=== PATIENT | female | born 1985 | race Caucasian/White ===

== ENCOUNTER 2017-02-03 03:07 | Inpatient (IN) | payer OTHER ==
[2017-02-03] MEDS ORDERED: Water For Irrigation,Sterile 1,000 ML Container IRR PRN (04:26)
[2017-02-03] MEDS ORDERED: Butorphanol 1 MG/ML SDV IVPUSH PRN (04:26)
[2017-02-03] MEDS ORDERED: Carboprost Tromethamine 250 MCG/1 ML Amp IM PRN (04:26)
[2017-02-03] MEDS ORDERED: Lidocaine 1% 50 ML MDV INJECT PRN (04:26)
[2017-02-03] MEDS ORDERED: Sodium Chloride 0.9% 10 ML Syringe FLUSH PRN (04:26)
[2017-02-03] MEDS ORDERED: Methylergonovine 0.2 MG/1 ML Amp IM PRN (04:26)
[2017-02-03] MEDS ORDERED: Nalbuphine 10 MG/1 ML Vial IVPUSH PRN (04:26)
[2017-02-03] MEDS ORDERED: Misoprostol 200 MCG Tab PO PRN (04:26)
[2017-02-03] MEDS ORDERED: Sodium Chloride 0.9% 2.5 ML Syringe FLUSH PRN (04:26)
[2017-02-03] MEDS ORDERED: Oxytocin/Lactated Ringers 30 UNIT/500 ML BAG IV SCH (04:30)
[2017-02-03] MEDS: Lactated Ringers 1,000 ML IV SCH ×2 (05:06→06:47)
[2017-02-03] MEDS ORDERED: Ropivacaine 0.2% 2 MG/ML 20 ML SDV ONE (06:13)
[2017-02-03] MEDS ORDERED: Ropivacaine HCl/PF 100 ML ONE (06:13)
[2017-02-03] MEDS ORDERED: fentaNYL 100 MCG/2 ML SDV ONE (06:14)
--- NOTE | 2017-02-03 07:30 | PCM.PREANE ---
Preanesthetic Assessment - Anesthesia/Transfusion/Family Hx Family History of Anesthesia Reaction: No (Denies) - Review of Systems General: No Symptoms Pulmonary: No Symptoms Cardiovascular: No Symptoms Gastrointestinal: No symptoms Neurological: No Symptoms Other: Reports: None (Denies any personal or family hx of bleeding or clotting problems) - Physical Assessment Height: 1.7 m Weight: 113.398 kg ASA Class: 2 Mental Status: Alert & Oriented x3 - Lab Values: Laboratory Last Values WBC 10.41 K/uL (4.0-11.0) 02/03/17 05:00 RBC 4.73 M/uL (4.30-5.90) 02/03/17 05:00 Hgb 12.4 g/dL (12.0-16.0) 02/03/17 05:00 Hct 37.9 % (36.0-46.0) 02/03/17 05:00 MCV 80.1 fL (80.0-98.0) 02/03/17 05:00 MCH 26.2 pg (27.0-32.0) L 02/03/17 05:00 MCHC 32.7 g/dL (31.0-37.0) 02/03/17 05:00 RDW Std Deviation 41.1 fl (28.0-62.0) 02/03/17 05:00 RDW Coeff of Liz 14 % (11.0-15.0) 02/03/17 05:00 Plt Count 240 K/uL (150-400) 02/03/17 05:00 MPV 9.90 fL (7.40-12.00) 02/03/17 05:00 Nucleated RBC % 0.0 /100WBC 02/03/17 05:00 Nucleated RBCs # 0 K/uL 02/03/17 05:00 Blood Type A NEGATIVE 02/03/17 05:00 Antibody Screen NEGATIVE 02/03/17 05:00 - Allergies Allergies/Adverse Reactions: Allergies Allergy/AdvReac Type Severity Reaction Status Date / Time Penicillins Allergy Hives Verified 04/05/14 21:10 - Acknowledgements Anesthesia Type Planned: Epidural Pt an Appropriate Candidate for the Planned Anesthesia: Yes Alternatives and Risks of Anesthesia Discussed w Pt/Guardian: Yes Pt/Guardian Understands and Agrees with Anesthesia Plan: Yes PreAnesthesia Questionnaire - Past Health History Medical/Surgical History: Denies Medical/Surgical History - Past Surgical History HEENT Surgical History: Reports: Tonsillectomy Other HEENT Surgeries/Procedures: Sparks teeth GI Surgical History: Reports: Other (see below) ([place]ernia not specified) - SUBSTANCE USE Smoking Status *Q: Former Smoker Days Per Week of Alcohol Use: 0 - HOME MEDS Home Medications: Home Meds Vit No.130/Iron/FA [ Vitamins] 1 tab PO DAILY 04/05/14 [History ] - CURRENT (IN HOUSE) MEDS Current Meds: Current Medications Butorphanol Tartrate (Stadol) 1 mg IVPUSH Q1H PRN PRN Reason: Pain Carboprost Tromethamine (Hemabate Ds) 250 mcg IM ASDIRECTED PRN PRN Reason: Post Hemorrhage Lactated Ringer's (Ringers, Lactated) 1,000 mls @ 150 mls/hr IV ASDIRECTED PABLO Last Admin: 02/03/17 06:47 Dose: 150 mls/hr Lidocaine HCl (Xylocaine 1%) 50 ml INJECT .ONCE PRN PRN Reason: Laceration repair Methylergonovine Maleate (Methergine) 0.2 mg IM ASDIRECTED PRN PRN Reason: Post Hemorrhage Misoprostol (Cytotec) 200 mcg PO .ONCE PRN PRN Reason: Post Hemorrhage Sodium Chloride (Saline Flush) 10 ml FLUSH ASDIRECTED PRN PRN Reason: Keep Vein Open Sodium Chloride (Saline Flush) 2.5 ml FLUSH ASDIRECTED PRN PRN Reason: Keep Vein Open Sterile Water (Sterile Water For Irrigation) 1,000 ml IRR ASDIRECTED PRN PRN Reason: delivery Discontinued Medications Fentanyl (Sublimaze) Confirm Administered Dose 200 mcg .ROUTE .STK-MED ONE Stop: 02/03/17 06:15 Oxytocin/Lactated Ringer's (Pitocin In Lr 30 Units/500 Ml) 30 unit in 500 mls @ 999 mls/hr IV TITRATE PABLO; 999 MUNITS/MIN PRN Reason: Protocol Stop: 02/03/17 05:01 Ropivacaine (Naropin 0.2%) Confirm Administered Dose 100 mls @ as directed .ROUTE .STK-MED ONE Stop: 02/03/17 06:14 Nalbuphine HCl (Nubain) 10 mg IVPUSH Q1H PRN PRN Reason: Pain (severe 7-10) Stop: 02/03/17 06:27 Ropivacaine (Naropin 0.2%) Confirm Administered Dose 20 ml .ROUTE .STK-MED ONE Stop: 02/03/17 06:14 Preanesthetic Assessment - PHYSICAL ASSESSMENT Height: 1.7 m Weight: 113.398 kg - LAB Values: Laboratory Last Values WBC 10.41 K/uL (4.0-11.0) 02/03/17 05:00 RBC 4.73 M/uL (4.30-5.90) 02/03/17 05:00 Hgb 12.4 g/dL (12.0-16.0) 02/03/17 05:00 Hct 37.9 % (36.0-46.0) 02/03/17 05:00 MCV 80.1 fL (80.0-98.0) 02/03/17 05:00 MCH 26.2 pg (27.0-32.0) L 02/03/17 05:00 MCHC 32.7 g/dL (31.0-37.0) 02/03/17 05:00 RDW Std Deviation 41.1 fl (28.0-62.0) 02/03/17 05:00 RDW Coeff of Liz 14 % (11.0-15.0) 02/03/17 05:00 Plt Count 240 K/uL (150-400) 02/03/17 05:00 MPV 9.90 fL (7.40-12.00) 02/03/17 05:00 Nucleated RBC % 0.0 /100WBC 02/03/17 05:00 Nucleated RBCs # 0 K/uL 02/03/17 05:00 Blood Type A NEGATIVE 02/03/17 05:00 Antibody Screen NEGATIVE 02/03/17 05:00 - ALLERGIES Allergies/Adverse Reactions: Allergies Allergy/AdvReac Type Severity Reaction Status Date / Time Penicillins Allergy Hives Verified 04/05/14 21:10
[2017-02-03] MEDS ORDERED: Oxytocin/Lactated Ringers 30 UNIT/500 ML BAG ONE (07:56)
[2017-02-03] MEDS ORDERED: oxyCODONE 5 MG Tab PO PRN (08:27)
[2017-02-03] MEDS ORDERED: Benzocaine/Menthol 20%-0.5% Spray 78 GM Cannister TOP PRN (08:27)
[2017-02-03] MEDS ORDERED: Lanolin 100% Cream 7 GM Tube TOP PRN (08:27)
[2017-02-03] MEDS ORDERED: Docusate Sodium 100 MG Cap PO PRN (08:27)
[2017-02-03] MEDS ORDERED: Ibuprofen 400 MG Tab PO PRN (08:27)
[2017-02-03] MEDS ORDERED: Witch Hazel Medicated Pads 40/Jar TOP PRN (08:27)
[2017-02-03] MEDS ORDERED: Acetaminophen 500 MG Tab PO PRN ×2 (08:27)
[2017-02-03] MEDS ORDERED: Ibuprofen 800 MG Tab PO PRN (08:27)
[2017-02-03] MEDS ORDERED: Bisacodyl 10 MG Supp RECTAL PRN (08:27)
--- NOTE | 2017-02-03 09:37 | PCM48HPAN ---
Post Anesthesia Note - EVALUATION WITHIN 48HRS OF ANESTHETIC Vital Signs in Normal Range: Yes Patient Participated in Evaluation: Yes Respiratory Function Stable: Yes Airway Patent: Yes Cardiovascular Function Stable: Yes Hydration Status Stable: Yes Pain Control Satisfactory: Yes Nausea and Vomiting Control Satisfactory: Yes Mental Status Recovered: Yes - COMMENTS/OBSERVATIONS Free Text/Narrative:: Sitting up in bed with baby. Denies any complaints at this time.
--- NOTE | 2017-02-03 14:01 | OR ---
SURGEON: Glenny Roberto MD DATE OF PROCEDURE: 02/03/2017 PREOPERATIVE DIAGNOSES: 1. Term at 40 weeks and 3 days. 2. Spontaneous labor. POSTOPERATIVE DIAGNOSES: 1. Term at 40 weeks and 3 days. 2. Spontaneous labor. 3. Delivered. PROCEDURE: Spontaneous vaginal delivery. ANESTHESIA: Epidural. ESTIMATED BLOOD LOSS: 100 mL. COMPLICATIONS: None. DISPOSITION: Mother and baby stable in Labor and Delivery room. BRIEF FINDINGS: Male , weight pending, score 8 and 9 at 1 and 5 minutes respectively. Lightly meconium-stained amniotic fluid at delivery. Grossly normal placenta with three-vessel cord. Intact perineum. BRIEF HISTORY: 32-year-old G4, P3, who presented within the early hours of the morning at 40 weeks and 3 days with regular contractions since 12 midnight. She denied vaginal bleeding, leakage of fluid and reported active fetus. Uncomplicated care at [facility]. GBS negative. The patient is Dr. Fallon's patient and [facility] are covering for him while he is away this week. On admission, she was 5 cm dilated, 90% effaced, -3. Artificial rupture of membranes was performed with scanty amount of clear fluid. Category 1 tracing. She received epidural for pain management. She progressed spontaneously to full dilatation and commenced active pushing. She pushed quite well bringing the baby's head down to +5 station and was set up for delivery in a modified dorsal lithotomy position. DESCRIPTION OF PROCEDURE: She had a spontaneous vaginal delivery of a live male infant in direct occipital anterior position, no nuchal cord, lightly meconium stained amniotic fluid at delivery (this was the first time this was noticed). Anterior and posterior shoulders and the rest of the baby were delivered without difficulty. The baby was vigorous and cried spontaneously at and delivered onto the maternal abdomen. With delivery of the infant, oxytocin infusion, titration was commenced for active management of third stage of labor. The cord was double clamped after it had ceased pulsating and then subsequently cut by the father of the baby. Cord blood and gas samples were obtained. The placenta was delivered by controlled cord traction, appeared to be complete and intact. Uterine massage was performed. The uterus was found to be well contracted below the umbilicus. Examination of the perineum revealed no lacerations. The patient tolerated the procedure well. Sponge, instrument, and needle counts were correct at the end of the delivery. CANDY / NORAH /[id number] MTDD
[2017-02-04 08:34] VITALS: BP 124/71
--- NOTE | 2017-02-04 08:58 | PCM.PNPP ---
- General Info Date of Service: 02/04/17 Functional Status: Reports: pain controlled, tolerating diet, ambulating, urinating - Review of Systems General: Denies: Fever, Weakness, Malaise HEENT: Denies: headaches Pulmonary: Denies: shortness of breath, pleuritic chest pain, cough Cardiovascular: Denies: Chest Pain, Palpitations, Dyspnea on Exertion Gastrointestinal: Denies: Abdominal pain Genitourinary: Denies: dysuria, incontinence Neurological: Denies: Confusion, Headache Psychiatric: Denies: confusion, depression, mood lability, anxiety - General Info Date of Service: 02/04/17 - Patient Data Vital Signs - most recent: Last Vital Signs Temp 36.8 C 02/04/17 08:33 Pulse 70 02/04/17 08:33 Resp 17 02/04/17 08:33 BP 124/71 02/04/17 08:33 Pulse Ox 97 02/04/17 08:33 Weight - most recent: 250 lb Lab Results - last 24 hrs: Laboratory Results - last 24 hr 02/03/17 02/04/17 Range/Units 09:29 05:12 Hgb 10.8 L (12.0-16.0) g/dL Hct 33.5 L (36.0-46.0) % Rhogam Indicated NO, MOM+BABY RH NEG Med Orders - Current: Current Medications Acetaminophen (Tylenol Extra Strength) 500 mg PO Q4H PRN PRN Reason: Pain Acetaminophen (Tylenol Extra Strength) 1,000 mg PO Q4H PRN PRN Reason: Pain Benzocaine/Menthol (Dermoplast Pain Relief 20%-0.5% Stryker) 78 gm TOP ASDIRECTED PRN PRN Reason: Perineal Comfort Measure Bisacodyl (Dulcolax) 10 mg RECTAL .ONCE PRN PRN Reason: Constipation Docusate Sodium (Colace) 100 mg PO BID PRN PRN Reason: Constipation Emollient Ointment (Lansinoh Hpa) 0 gm TOP ASDIRECTED PRN PRN Reason: Sore Nipples Last Admin: 02/04/17 08:36 Dose: 1 tube Ibuprofen (Motrin) 400 mg PO Q4H PRN PRN Reason: Pain Ibuprofen (Motrin) 800 mg PO Q6H PRN PRN Reason: Pain Last Admin: 02/03/17 20:11 Dose: 800 mg Oxycodone HCl (Oxycodone) 5 mg PO Q2H PRN PRN Reason: Pain Witch Princess (Tucks) 1 pad TOP ASDIRECTED PRN PRN Reason: comfort care Discontinued Medications Butorphanol Tartrate (Stadol) 1 mg IVPUSH Q1H PRN PRN Reason: Pain Carboprost Tromethamine (Hemabate Ds) 250 mcg IM ASDIRECTED PRN PRN Reason: Post Hemorrhage Fentanyl (Sublimaze) Confirm Administered Dose 200 mcg .ROUTE .STK-MED ONE Stop: 02/03/17 06:15 Lactated Ringer's (Ringers, Lactated) 1,000 mls @ 150 mls/hr IV ASDIRECTED PABLO Last Infusion: 02/03/17 15:05 Dose: Infused Oxytocin/Lactated Ringer's (Pitocin In Lr 30 Units/500 Ml) 30 unit in 500 mls @ 999 mls/hr IV TITRATE PABLO; 999 MUNITS/MIN PRN Reason: Protocol Stop: 02/03/17 05:01 Last Titration: 02/03/17 15:04 Dose: Infused Ropivacaine (Naropin 0.2%) Confirm Administered Dose 100 mls @ as directed .ROUTE .STK-MED ONE Stop: 02/03/17 06:14 Oxytocin/Lactated Ringer's (Pitocin In Lr 30 Units/500 Ml) Confirm Administered Dose 30 unit in 500 mls @ as directed .ROUTE .STK-MED ONE Stop: 02/03/17 07:57 Lidocaine HCl (Xylocaine 1%) 50 ml INJECT .ONCE PRN PRN Reason: Laceration repair Methylergonovine Maleate (Methergine) 0.2 mg IM ASDIRECTED PRN PRN Reason: Post Hemorrhage Misoprostol (Cytotec) 200 mcg PO .ONCE PRN PRN Reason: Post Hemorrhage Nalbuphine HCl (Nubain) 10 mg IVPUSH Q1H PRN PRN Reason: Pain (severe 7-10) Stop: 02/03/17 06:27 Ropivacaine (Naropin 0.2%) Confirm Administered Dose 20 ml .ROUTE .STK-MED ONE Stop: 02/03/17 06:14 Sodium Chloride (Saline Flush) 10 ml FLUSH ASDIRECTED PRN PRN Reason: Keep Vein Open Sodium Chloride (Saline Flush) 2.5 ml FLUSH ASDIRECTED PRN PRN Reason: Keep Vein Open Sterile Water (Sterile Water For Irrigation) 1,000 ml IRR ASDIRECTED PRN PRN Reason: delivery Last Admin: 02/03/17 08:26 Dose: 1,000 ml - Interaction Infant Disposition, : [place] in Room with Family Infant Interaction: Holding Feeding: Breastfed Infant; Nursed Well, Continues to Breastfeed Support Person: - Recovery Exam Fundal Tone: Firm Fundal Level: At Umbilicus Fundal Placement: Midline Lochia Amount: Scant Lochia Color: Rubra/Red Perineum Description: Intact, Minimal Bruising/Swelling Episiotomy/Laceration: None Bladder Status: Voiding Urinary Elimination: Voided - Exam General: alert, oriented HEENT: Pupils equal Lungs: Clear to auscultation, Normal respiratory effort Cardiovascular: Regular Rate, Regular Rhythm Abdomen: bowel sounds present, soft, no tenderness, no distension Extremities: no calf tenderness, edema Neurological: no new focal deficit Psy/Mental Status: alert, normal affect, normal mood - Problem List & Annotations (1) Vaginal delivery SNOMED Code(s): 809000958 Code(s): O80 - ENCOUNTER FOR FULL-TERM UNCOMPLICATED DELIVERY Status: Acute Current Visit: Yes - Problem List Review Problem List Initiated/Reviewed/Updated: Yes - My Orders Last 24 Hours: My Active Orders 02/03/17 08:27 Patient Status [ADT] Routine May Shower [RC] ASDIRECTED Up ad [place] [RC] ASDIRECTED Vital Signs [RC] PER UNIT ROUTINE Acetaminophen [Tylenol Extra Strength] 1,000 mg PO Q4H PRN Acetaminophen [Tylenol Extra Strength] 500 mg PO Q4H PRN Benzocaine/Menthol [Dermoplast Pain Relief 20%-0.5% Stryker] 78 gm TOP ASDIRECTED PRN Bisacodyl [Dulcolax] 10 mg RECTAL .ONCE PRN Docusate Sodium [Colace] 100 mg PO BID PRN Ibuprofen [Motrin] 400 mg PO Q4H PRN Ibuprofen [Motrin] 800 mg PO Q6H PRN Lanolin [Lansinoh HPA] See Dose Instructions TOP ASDIRECTED PRN Witch Princess [Tucks] 1 pad TOP ASDIRECTED PRN oxyCODONE 5 mg PO Q2H PRN Assess Lochia [WOMSER] Per Unit Routine Assess Uterine Involution [WOMSER] Per Unit Routine Breast Pump [WOMSER] Per Unit Routine Peripheral IV Discontinue [OM.PC] Routine Resuscitation Status Routine 02/03/17 08:28 Perineal Care [OM.PC] Per Unit Routine 02/03/17 Lunch Regular Diet [DIET] 02/04/17 08:48 Ready for Discharge [RC] PER UNIT ROUTINE - Assessment Assessment:: PPD#1 s/p , stable and afebrile, minimal lochia - Plan Plan:: Discharge instructions reviewed Nothing in the vagina for 6 weeks Continue PNV Bleeding and infection precautions reviewed Follow up in 6 weeks at [facility]
== END 2017-02-04 12:05 | disposition home or self-care (01) | DRG 775 ==
LOC: MW.OBCHECK 03:07 → MW.OB 03:08 → MW.OBCHECK 04:26 → MW.OB 04:26 → OBSVTOIN 08:07 → MW.OB 13:11
PROVIDERS: ADMIT Obstetrics & Gynecology; ATTEND Obstetrics & Gynecology
PROC: 10E0XZZ Delivery of Products of Conception, External Approach (ICD-10-PCS; principal; 2017-02-03)
PROC: 10907ZC Drainage of Amniotic Fluid, Therapeutic from Products of Conception, Via Natural or Artificial Opening (ICD-10-PCS; 2017-02-03)
DX: O80 Encounter for full-term uncomplicated delivery (principal); Z3A.40 40 weeks gestation of pregnancy; Z37.0 Single live birth
CPT/HCPCS: 01967; 36415; 59025; 85014; 85018; 85027; 86850; 86900; 86901; A9270-GY; J2795; J3010; J7120

== ENCOUNTER 2017-05-25 18:21 | Emergency (ER) | payer OTHER ==
[2017-05-25] MEDS ORDERED: Sodium Chloride 0.9% 1,000 ML IV ONE (18:34)
[2017-05-25] MEDS ORDERED: Albuterol/Ipratropium 3.0-0.5 MG/3 ML Neb Soln NEB ONE (18:34)
--- NOTE | 2017-05-25 18:40 | EDM.PDOC ---
ED HPI GENERAL MEDICAL PROBLEM - General Chief Complaint: Respiratory Problem Stated Complaint: COUGH/FEVER Time Seen by Provider: 05/25/17 18:25 Source of Information: Reports: Patient History Limitations: Reports: No Limitations - History of Present Illness INITIAL COMMENTS - FREE TEXT/NARRATIVE: History of present illness: 32-year-old female presenting with complaints of intermittent fever and chills. Patient indicates she has had a cough for the last 2-3 weeks and has gotten progressively worse making her short of breath and now of concern is the fact that she is having fevers with a cough and now she feels she has exposed her baby as well. Review of systems: As per history of present illness and below otherwise all systems reviewed and negative. Past medical history: As per history of present illness and as reviewed below otherwise noncontributory. Surgical history: As per history of present illness and as reviewed below otherwise noncontributory. Social history: No reported history of drug or alcohol abuse. Family history: As per history of present illness and as reviewed below otherwise noncontributory. Physical exam: HEENT: Atraumatic, normocephalic, pupils reactive, negative for conjunctival pallor or scleral icterus, mucous membranes moist, throat clear, neck supple, nontender, trachea midline. Lungs: Scattered coarse breath sounds in bilateral upper airways otherwise, breath sounds equal bilaterally, chest nontender. Heart: S1S2, regular, negative for clicks, rubs, or JVD. Abdomen: Soft, nondistended, nontender. Negative for masses or hepatosplenomegaly. Negative for costovertebral tenderness. Pelvis: Stable nontender. Genitourinary: Deferred. Rectal: Deferred. Extremities: Atraumatic, negative for cords or calf pain. Neurovascular unremarkable. Neuro: Awake, alert, oriented. Cranial nerves II through XII unremarkable. Cerebellum unremarkable. Motor and sensory unremarkable throughout. Exam nonfocal. Diagnostics: [CBC, CMP, chest x-ray] Therapeutics: [Duo neb, IV fluid] Impression: [Pneumonia] Plan: [Albuterol inhaler, antibiotics] Definitive disposition and diagnosis as appropriate pending reevaluation and review of above. - Related Data Allergies Allergy/AdvReac Type Severity Reaction Status Date / Time Penicillins Allergy Hives Verified 05/25/17 18:40 Home Meds: Home Meds Vit No.130/Iron/FA [ Vitamins] 1 tab PO DAILY 04/05/14 [History ] Albuterol Sulfate [Proair Hfa] 2 puff IH Q6HR #1 hfa.aer.ad 05/25/17 [Rx] Inhaler, Assist Devices [Space Chamber Plus] 1 each ASDIRECTED #1 spacer 04/06 [Rx] Levofloxacin 750 mg PO DAILY #10 tablet 05/25/17 [Rx] Past Medical History - Past Health History Medical/Surgical History: Denies Medical/Surgical History - Past Surgical History GI Surgical History: Reports: Other (See Below) Social & Family History - Family History Endocrine/Metabolic: Reports: Diabetes, type II - Tobacco Use Smoking Status *Q: Former Smoker Years of Tobacco use: 10 Used Tobacco, but Quit: Yes Month Tobacco Last Used: february - Alcohol Use Days Per Week of Alcohol Use: 0 ED ROS GENERAL - Review of Systems Review Of Systems: See Below (See history of present illness) ED EXAM, GENERAL - Physical Exam Exam: See Below (See history of present illness) Course - Vital Signs Last Recorded V/S: Last Vital Signs Temp 37.1 C 05/25/17 19:12 Pulse 105 H 05/25/17 19:12 Resp 20 05/25/17 19:12 BP 130/83 05/25/17 19:12 Pulse Ox 96 05/25/17 19:12 - Orders/Labs/Meds Orders: Active Orders 24 hr Category Date Time Status RT Aerosol Therapy [RC] ASDIRECTED Care 05/25/17 18:34 Ordered CXR [Chest 2V] [CR] Stat Exams 05/25/17 18:33 Ordered Labs: Laboratory Tests 05/25/17 05/25/17 05/25/17 Range/Units 18:54 18:54 18:54 WBC 13.51 H (4.0-11.0) K/uL RBC 4.92 (4.30-5.90) M/uL Hgb 13.3 (12.0-16.0) g/dL Hct 39.6 (36.0-46.0) % MCV 80.5 (80.0-98.0) fL MCH 27.0 (27.0-32.0) pg MCHC 33.6 (31.0-37.0) g/dL RDW Std Deviation 39.6 (28.0-62.0) fl RDW Coeff of Liz 14 (11.0-15.0) % Plt Count 275 (150-400) K/uL MPV 9.20 (7.40-12.00) fL Add Manual Diff YES Neutrophils % (Manual) 52 (48.0-80.0) % Band Neutrophils % 13 % Lymphocytes % (Manual) 24 (16.0-40.0) % Monocytes % (Manual) 6 (0.0-15.0) % Eosinophils % (Manual) 5 (0.0-7.0) % Nucleated RBC % 0.0 /100WBC Absolute Seg Neuts 7.0 Band Neutrophils # 1.8 Lymphocytes # (Manual) 3.2 Monocytes # (Manual) 0.8 Eosinophils # (Manual) 0.7 Nucleated RBCs # 0 K/uL Sodium 138 (136-146) mmol/L Potassium 3.8 (3.5-5.1) mmol/L Chloride 108 (98-110) mmol/L Carbon Dioxide 18 L (21-31) mmol/L BUN 7 (6.0-23.0) mg/dL Creatinine 0.9 (0.6-1.5) mg/dL Est Cr Clr Drug Dosing 86.46 mL/min Estimated GFR (MDRD) > 60.0 ml/min Glucose 114 H (60-110) mg/dL Calcium 9.3 (8.8-10.8) mg/dL Total Bilirubin 0.7 (0.1-1.5) mg/dL AST 44 H (5-40) IU/L ALT 93 H (8-54) IU/L Alkaline Phosphatase 164 H (40-150) Total Protein 7.9 (6.0-8.0) g/dL Albumin 4.0 (3.5-5.0) g/dL Globulin 3.9 H (2.0-3.5) g/dL Albumin/Globulin Ratio 1.0 L (1.3-2.8) HCG, Qual NEGATIVE (NEG) Urine Color Urine Appearance Urine pH (5.0-8.0) Ur Specific [place] (1.001-1.035) Urine Protein (NEGATIVE) mg/dL Urine Glucose (UA) (NEGATIVE) mg/dL Urine Ketones (NEGATIVE) mg/dL Urine Occult Blood (NEGATIVE) Urine Nitrite (NEGATIVE) Urine Bilirubin (NEGATIVE) Urine Urobilinogen (<2.0) EU/dL Ur Leukocyte Esterase (NEGATIVE) Urine RBC (0-2/HPF) Urine WBC (0-5/HPF) Ur Epithelial Cells (NONE-FEW) Urine Bacteria (NEGATIVE) 05/25/17 Range/Units 19:12 WBC (4.0-11.0) K/uL RBC (4.30-5.90) M/uL Hgb (12.0-16.0) g/dL Hct (36.0-46.0) % MCV (80.0-98.0) fL MCH (27.0-32.0) pg MCHC (31.0-37.0) g/dL RDW Std Deviation (28.0-62.0) fl RDW Coeff of Liz (11.0-15.0) % Plt Count (150-400) K/uL MPV (7.40-12.00) fL Add Manual Diff Neutrophils % (Manual) (48.0-80.0) % Band Neutrophils % % Lymphocytes % (Manual) (16.0-40.0) % Monocytes % (Manual) (0.0-15.0) % Eosinophils % (Manual) (0.0-7.0) % Nucleated RBC % /100WBC Absolute Seg Neuts Band Neutrophils # Lymphocytes # (Manual) Monocytes # (Manual) Eosinophils # (Manual) Nucleated RBCs # K/uL Sodium (136-146) mmol/L Potassium (3.5-5.1) mmol/L Chloride (98-110) mmol/L Carbon Dioxide (21-31) mmol/L BUN (6.0-23.0) mg/dL Creatinine (0.6-1.5) mg/dL Est Cr Clr Drug Dosing mL/min Estimated GFR (MDRD) ml/min Glucose (60-110) mg/dL Calcium (8.8-10.8) mg/dL Total Bilirubin (0.1-1.5) mg/dL AST (5-40) IU/L ALT (8-54) IU/L Alkaline Phosphatase (40-150) Total Protein (6.0-8.0) g/dL Albumin (3.5-5.0) g/dL Globulin (2.0-3.5) g/dL Albumin/Globulin Ratio (1.3-2.8) HCG, Qual (NEG) Urine Color YELLOW Urine Appearance CLEAR Urine pH 6.0 (5.0-8.0) Ur Specific [place] <= 1.005 (1.001-1.035) Urine Protein TRACE (NEGATIVE) mg/dL Urine Glucose (UA) NEGATIVE (NEGATIVE) mg/dL Urine Ketones NEGATIVE (NEGATIVE) mg/dL Urine Occult Blood SMALL H (NEGATIVE) Urine Nitrite NEGATIVE (NEGATIVE) Urine Bilirubin NEGATIVE (NEGATIVE) Urine Urobilinogen 1.0 (<2.0) EU/dL Ur Leukocyte Esterase NEGATIVE (NEGATIVE) Urine RBC 3-5 (0-2/HPF) Urine WBC 2-4 (0-5/HPF) Ur Epithelial Cells FEW (NONE-FEW) Urine Bacteria FEW (NEGATIVE) Meds: Medications Discontinued Medications Generic Name Dose Route Start Last Admin Trade Name Freq PRN Reason Stop Dose Admin Albuterol/Ipratropium 3 ml 05/25/17 18:34 05/25/17 18:45 Duoneb 3.0-0.5 Mg/3 Ml NEB 05/25/17 18:35 3 ml ONETIME ONE Administration Sodium Chloride 1,000 mls @ 999 mls/hr 05/25/17 18:34 05/25/17 18:45 Normal Saline IV 05/25/17 19:34 999 mls/hr STAT ONE Administration Departure - Departure Time of Disposition: 20:23 Disposition: Home, Self-Care 01 Condition: Good Clinical Impression: Pneumonia, Bronchitis - Discharge Information Forms: ED Department Discharge Additional Instructions: The following information is given to patients seen in the emergency department who are being discharged to home. This information is to outline your options for follow-up care. We provide all patients seen in our emergency department with a follow-up referral. The need for follow-up, as well as the timing and circumstances, are variable depending upon the specifics of your emergency department visit. If you don't have a primary care physician on staff, we will provide you with a referral. We always advise you to contact your personal physician following an emergency department visit to inform them of the circumstance of the visit and for follow-up with them and/or the need for any referrals to a consulting specialist. The emergency department will also refer you to a specialist when appropriate. This referral assures that you have the opportunity for follow-up care with a specialist. All of these measure are taken in an effort to provide you with optimal care, which includes your follow-up. Under all circumstances we always encourage you to contact your private physician who remains a resource for coordinating your care. When calling for follow-up care, please make the office aware that this follow-up is from your recent emergency room visit. If for any reason you are refused follow-up, please contact the [facility] Emergency Department at and asked to speak to the emergency department charge nurse. Take medication as directed Follow-up with PCP 1-2 days Return to ED as needed as discussed - My Orders Last 24 Hours: My Active Orders 05/25/17 18:33 CXR [Chest 2V] [CR] Stat 05/25/17 18:34 RT Aerosol Therapy [RC] ASDIRECTED - Assessment/Plan Last 24 Hours: My Active Orders 05/25/17 18:33 CXR [Chest 2V] [CR] Stat 05/25/17 18:34 RT Aerosol Therapy [RC] ASDIRECTED
[2017-05-25 19:27] LABS: CHLORIDE,CL 108 mmol/L (98-110); SODIUM,NA 138 mmol/L (136-146)
[2017-05-25 20:41] VITALS: BP 134/63
--- NOTE | 2017-05-26 14:57 | CR ---
EXAM DATE: 05/25/17 PATIENT'S AGE: 32 Patient: CARLOS EDUARDO GARCIA Facility: [place], [place] Site . Site : 1985 Study: XRay Chest [id number]/5/2017 7:59:00 PM Ordering Physician: Doctor Delong Final Report: INDICATION: SOB, COUGH. TECHNIQUE: Chest 2 views COMPARISON: None FINDINGS: Cardiovascular and mediastinum: Heart size and vasculature are normal in caliber and appearance. Mediastinum is within normal limits. Lungs and pleural spaces: Subtle left lower lobe consolidation. No sign of pleural effusion. No pneumothorax. Bones and soft tissues: No significant findings. IMPRESSION: Subtle left lower lobe consolidation. Please correlate for signs of pneumonia. . Dictated by Hong Mcnally MD @ 05/25/2017 8:16:36 PM Dictated by: Hong Mcnally MD @ 05/25/2017 20:16:54 (Electronic Signature) Report Signed by Proxy. [facility]ITALDewayne
== END 2017-05-25 20:40 | disposition home or self-care (01) ==
LOC: MW.ED 18:21
DX: J18.9 Pneumonia, unspecified organism (principal); J40 Bronchitis, not specified as acute or chronic; Z87.891 Personal history of nicotine dependence; Z79.2 Long term (current) use of antibiotics; Z88.0 Allergy status to penicillin
CPT/HCPCS: 36415; 71020; 80053; 81001; 84703; 85025; 87070; 87205; 94664; 96360; 96361; 99285; J7040; 99283

== ENCOUNTER 2021-08-29 11:05 | Emergency (ER) | payer SELFPAY ==
[2021-08-29 13:46] VITALS: PULSE 100
--- NOTE | 2021-08-29 14:57 | EDM.PDOC ---
ED HPI GENERAL MEDICAL PROBLEM - General Chief Complaint: ENT Problem Stated Complaint: SINUSES Time Seen by Provider: 08/29/21 14:53 Source of Information: Reports: Patient History Limitations: Reports: No Limitations - History of Present Illness INITIAL COMMENTS - FREE TEXT/NARRATIVE: HISTORY AND PHYSICAL: History of present illness: Review of systems: As per history of present illness and below otherwise all systems reviewed and negative. Past medical history: As per history of present illness and as reviewed below otherwise noncontributory. Surgical history: As per history of present illness and as reviewed below otherwise noncontributory. Social history: See social history for further information Family history: As per history of present illness and as reviewed below otherwise noncontributory. Physical exam: General: Well developed and well nourished. Alert and orientated x 3. Nontoxic in appearance and in no acute distress. Vital signs are stable and have been reviewed by me. Nursing notes were reviewed. HEENT: Atraumatic, normocephalic, pupils equal and reactive bilaterally, negative for conjunctival pallor or scleral icterus, mucous membranes moist, TMs normal bilaterally, throat clear, neck supple, nontender, trachea midline. No drooling or trismus noted. No meningeal signs. No hot potato voice noted. Lungs: Clear to auscultation bilaterally. No wheezes, rales, or rhonchi. Chest nontender. Normal work of breathing, no accessory muscles used. Heart: S1S2, regular rate and rhythm without overt murmur, gallops, or rubs. No JVD. No peripheral edema Abdomen: Soft, nondistended, nontender. Normoactive bowel sounds. Negative for masses or costovertebral tenderness. Pelvis: Stable nontender. Genitourinary/Rectal: Deferred. Skin: Intact, warm, dry. No lesions or rashes noted. Hematologic: No petechiae or purpra. Mucosa appropriate color and normal nail bed color and refill. Extremities: Atraumatic, moves all extremities per self without difficulty or deficits, negative for cords or calf pain. Neurovascular unremarkable. Neuro: Awake, alert, oriented. Cranial nerves II through XII unremarkable. Cerebellum unremarkable. Motor and sensory unremarkable throughout. Exam nonfocal. Psychiatric: Mood and affect are appropriate. Normal thought process. Answering questions appropriately. Notes: *This patient was seen and evaluated during the 2019 SARS-CoV-2 novel coronavirus pandemic period. Community viral transmission is ongoing at time of this encounter and the emergency department is operating under pandemic response procedures. I have talked with the patient about today's findings, in addition to providing specific details for plan of care. Reassessment at the time of disposition demonstrates that the patient is in no acute distress. The patient is stable for discharge, counseling was provided and we discussed in great detail signs and symptoms that would prompt them to return to the Emergency Department. Medi cation, follow up and supportive care measures were reviewed and discussed. Voices understanding and is agreeable to plan of care. Denies any further questions or concerns at this time. Diagnostics: Therapeutics: Prescription: Impression: Plan: 1. You were evaluated today on an emergent basis. Your complaints of sinus difficulties was evaluated and treated with clindamycin 300 mg every 6 hours for 10 days. Clindamycin is safe in . Follow-up with your primary care as needed. 2. You can alternate Tylenol and ibuprofen as needed for pain and fever management. 3. We encourage you to follow up with your primary care provider and/or recommended specialist in the next few days for re-evaluation and further care/management. 4. If your symptoms should worsen, new symptoms develop or any of the signs and symptoms we discussed should arise please return to the emergency room or call 911 (if needed). Definitive disposition and diagnosis as appropriate pending reevaluation and review of above. 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: - Infectious Disease History Infectious Disease History: Reports: Chicken Pox - Past Surgical History HEENT Surgical History: Reports: Tonsillectomy Other HEENT Surgeries/Procedures: [place] teeth GI Surgical History: Reports: Hernia Repair/Other, Other (See Below) Social & Family History - Family History Family Medical History: No Pertinent Family History Endocrine/Metabolic: Reports: Diabetes, type II - Tobacco Use Tobacco Use Status *Q: Former Tobacco User Used Tobacco, but Quit: Yes Month/Year Tobacco Last Used: 2017 - Caffeine Use Caffeine Use: Reports: None - Recreational Drug Use Recreational Drug Use: No Course - Vital Signs Last Recorded V/S: Last Vital Signs Temp 98.3 F 08/29/21 13:44 Pulse 100 08/29/21 13:44 Resp 18 08/29/21 13:44 BP 121/74 08/29/21 13:44 Pulse Ox 100 08/29/21 13:44 Departure - Discharge Information Prescriptions: Clindamycin HCl 600 mg PO Q6HR 10 Days #40 capsule Referrals: Antonio Will MD [Primary Care Provider] - Sepsis Event Note (ED) - Focused Exam Vital Signs: Vital Signs Temp Pulse Resp BP Pulse Ox 08/29/21 13:44 98.3 F 100 18 121/74 100
--- NOTE | 2021-08-29 15:09 | EDM.PDOC ---
ED HPI GENERAL MEDICAL PROBLEM - General Chief Complaint: ENT Problem Stated Complaint: SINUSES Time Seen by Provider: 08/29/21 14:53 - History of Present Illness INITIAL COMMENTS - FREE TEXT/NARRATIVE: History of present illness: Patient has sinusitis for few days. The right side of her nose and periorbital soft tissues infraorbital to it are starting to swell and get red. She has pain and fever. The patient is 18+ weeks . [] Review of systems: As per history of present illness and below otherwise all systems reviewed and negative. Past medical history: As per history of present illness and as reviewed below otherwise noncontributory. Surgical history: As per history of present illness and as reviewed below otherwise noncontributory. Social history: No reported history of drug or alcohol abuse. Family history: As per history of present illness and as reviewed below otherwise noncontributory. Physical exam: Constitutional - well developed, well-nourished and in no acute distress HEENT -there is swelling and redness of the right side of the nose with infraorbital swelling and redness as well as some swelling of the lower lid of the right eye. Otherwise normocephalic, no evidence of trauma - external nose and mouth otherwise normal - no mass in neck and no JVD - mucosae moist-no trismus-normal voice. EYES - full EOM, PERRL, no icterus - no evidence of inflammation, injection, or drainage Respiratory - no respiratory distress, equal bilateral expansion, lungs clear to auscultation and no abnormal lung sounds Cardiovascular - Regular Rhythm with S1 and S2 appreciated and no murmur, gallop or rub. GI - abdomen soft without distension or organomegaly other than a fundus consistent with dates.- normal bowel sounds - no guard or rebound Musculoskeletal no gross deformity of long bones or joints - no tenderness, swelling or edema Neurologic - Alert and oriented times four - CN II-XII grossly intact - motor sensory and coordination symmetrically normal Psychiatric - appropriate mood and affect with normal thought content Hematologic - No petechiae or purpura - mucosa appropriate color and sclera not pale - normal nail bed color and refill Integument - no rash or evidence of trauma - normal turgor Diagnostics: [] Therapeutics: [] Impression: [] Plan: [] Definitive disposition and diagnosis as appropriate pending reevaluation and review of above. 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: - Infectious Disease History Infectious Disease History: Reports: Chicken Pox - Past Surgical History HEENT Surgical History: Reports: Tonsillectomy Other HEENT Surgeries/Procedures: [place] teeth GI Surgical History: Reports: Hernia Repair/Other, Other (See Below) Social & Family History - Family History Family Medical History: No Pertinent Family History Endocrine/Metabolic: Reports: Diabetes, type II - Tobacco Use Tobacco Use Status *Q: Former Tobacco User Used Tobacco, but Quit: Yes Month/Year Tobacco Last Used: 2017 - Caffeine Use Caffeine Use: Reports: None - Recreational Drug Use Recreational Drug Use: No ED ROS GENERAL - Review of Systems Review Of Systems: Comprehensive ROS is negative, except as noted in HPI. ED EXAM, GENERAL - Physical Exam Exam: See Below Free Text/Narrative:: My physical exam is in the HPI Course - Vital Signs Text/Narrative:: The patient has had Keflex before with no ill effects. Last Recorded V/S: Last Vital Signs Temp 36.8 C 08/29/21 13:44 Pulse 100 08/29/21 13:44 Resp 18 08/29/21 13:44 BP 121/74 08/29/21 13:44 Pulse Ox 100 08/29/21 13:44 Departure - Departure Time of Disposition: 15:07 Disposition: Home, Self-Care 01 Condition: Good Clinical Impression: Cellulitis of face - Discharge Information Prescriptions: Clindamycin HCl 300 mg PO Q6HR 10 Days #40 capsule cephALEXin [Keflex] 500 mg PO QID #30 cap Instructions: Cellulitis, Adult Referrals: Antonio Will MD [Primary Care Provider] - Nba Yun MD [Ordering Only Provider] - Forms: ED Department Discharge Additional Instructions: Follow-up with Dr. Yun if you are not better in 2 days. Return if worse. [facility] - Primary [facility] [address] [place] [id number] [id number] The following information is given to patients seen in the emergency department who are being discharged to home. This information is to outline your options for follow-up care. We provide all patients seen in our emergency department with a follow-up referral. The need for follow-up, as well as the timing and circumstances, are variable depending upon the specifics of your emergency department visit. If you don't have a primary care physician on staff, we will provide you with a referral. We always advise you to contact your personal physician following an emergency department visit to inform them of the circumstance of the visit and for follow-up with them and/or the need for any referrals to a consulting specialist. The emergency department will also refer you to a specialist when appropriate. This referral assures that you have the opportunity for follow-up care with a specialist. All of these measure are taken in an effort to provide you with optimal care, which includes your follow-up. Under all circumstances we always encourage you to contact your private physician who remains a resource for coordinating your care. When calling for follow-up care, please make the office aware that this follow-up is from your recent emergency room visit. If for any reason you are refused follow-up, please contact the [facility] Emergency Department at and asked to speak to the emergency department charge nurse. Sepsis Event Note (ED) - Focused Exam Vital Signs: Vital Signs Temp Pulse Resp BP Pulse Ox 08/29/21 13:44 36.8 C 100 18 121/74 100
[2021-08-29 16:17] VITALS: BP 140/89
== END 2021-08-29 15:17 | disposition home or self-care (01) ==
LOC: MW.ED 11:05
DX: O99.712 Diseases of the skin and subcutaneous tissue complicating pregnancy, second trimester (principal); L03.211 Cellulitis of face; Z87.891 Personal history of nicotine dependence; Z88.0 Allergy status to penicillin; Z3A.18 18 weeks gestation of pregnancy
CPT/HCPCS: 99283

== ENCOUNTER 2021-09-17 05:05 | Observation (INO) | payer MEDICAID ==
[2021-09-17] MEDS ORDERED: Carboprost Tromethamine 250 MCG/1 ML Amp IM PRN (09:02)
[2021-09-17] MEDS ORDERED: Tranexamic Acid 1,000 MG in Sodium Chloride 0.9% 100 ML IV PRN (09:02)
[2021-09-17] MEDS ORDERED: Misoprostol 200 MCG Tab PO PRN (09:02)
[2021-09-17] MEDS ORDERED: Butorphanol 1 MG/ML SDV IVPUSH PRN (09:02)
[2021-09-17] MEDS ORDERED: Lidocaine 1% 50 ML MDV INJECT PRN (09:02)
[2021-09-17] MEDS ORDERED: Methylergonovine 0.2 MG/1 ML Amp IM PRN (09:02)
[2021-09-17] MEDS ORDERED: Sodium Chloride 0.9% 2.5 ML Syringe FLUSH PRN (09:02)
[2021-09-17] MEDS ORDERED: Nalbuphine 10 MG/1 ML Vial IVPUSH PRN (09:02)
[2021-09-17] MEDS ORDERED: Sodium Chloride 0.9% 10 ML Syringe FLUSH PRN (09:02)
[2021-09-17] MEDS ORDERED: Oxytocin/0.9 % Sodium Chloride 30 UNIT/500 ML BAG IV SCH (09:15)
[2021-09-17] MEDS ORDERED: Lactated Ringers 1,000 ML IV SCH (09:15)
--- NOTE | 2021-09-17 10:45 | PCM.LDHP ---
L&D History of Present Illness - General Date of Service: 09/17/21 Admit Problem/Dx: Patient Status Order with Admit Dx/Problem 09/17/21 05:00 Patient Status [ADT] Routine Admission Diagnosis/Problem Admission Diagnosis/Problem demise, less than 22 weeks Source of Information: Patient History Limitations: Reports: No Limitations - History of Present Illness Improves with: Reports: None Worsens with: Reports: None Associated Symptoms: Reports: N - Related Data Allergies/Adverse Reactions: Allergies Allergy/AdvReac Type Severity Reaction Status Date / Time Penicillins Allergy Unknown Other Verified 09/17/21 08:35 Home Medications: Home Meds Vit No.130/Iron/Folic [ Vitamins] 1 tab PO DAILY 04/05/14 [History] Clindamycin HCl 300 mg PO Q6HR 10 Days #40 capsule 08/29/21 [Rx] Omeprazole 20 mg PO DAILY 08/29/21 [History] Ondansetron [Zofran ODT] 4 mg PO ASDIRECTED 08/29/21 [History] cephALEXin [Keflex] 500 mg PO QID #30 cap 08/29/21 [Rx] Past Medical History - Past Health History Medical/Surgical History: Denies Medical/Surgical History HEENT History: Reports: None Cardiovascular History: Reports: None Respiratory History: Reports: None Gastrointestinal History: Reports: Other (See Below) Other Gastrointestinal History: Stomach Ulcers Genitourinary History: Reports: None 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 - Infectious Disease History Infectious Disease History: Reports: Chicken Pox - Past Surgical History Head Surgeries/Procedures: Reports: None HEENT Surgical History: Reports: Tonsillectomy Other HEENT Surgeries/Procedures: [place] teeth - age 15. Tonsilectomy - age 11 Cardiovascular Surgical History: Reports: None Respiratory Surgical History: Reports: None GI Surgical History: Reports: Hernia, Inguinal Other GI Surgeries/Procedures: Groin area hernia repair as . Female Surgical History: Reports: None Endocrine Surgical History: Reports: None Neurological Surgical History: Reports: None Musculoskeletal Surgical History: Reports: None Oncologic Surgical History: Reports: None Dermatological Surgical History: Reports: None Social & Family History - Family History Family Medical History: No Pertinent Family History Endocrine/Metabolic: Reports: Diabetes, type II - Tobacco Use Tobacco Use Status *Q: Never Tobacco User Second Hand Smoke Exposure: No - Caffeine Use Caffeine Use: Reports: None - Recreational Drug Use Recreational Drug Use: No H&P Review of Systems - Review of Systems: Review Of Systems: See Below General: Reports: No Symptoms HEENT: Reports: No Symptoms Pulmonary: Reports: No Symptoms Cardiovascular: Reports: No Symptoms Gastrointestinal: Reports: No Symptoms Genitourinary: Reports: No Symptoms Musculoskeletal: Reports: No Symptoms Skin: Reports: No Symptoms Psychiatric: Reports: No Symptoms Neurological: Reports: No Symptoms Hematologic/Lymphatic: Reports: No Symptoms Immunologic: Reports: No Symptoms L&D Exam - Exam Exam: See Below - Vital Signs Weight: 117.934 kg - OB Specific Contraction Intensity: Mild Presentation: Vertex - Exam General: Alert, Oriented HEENT: PERRLA, Conjunctiva Clear, EACs Clear, EOMI, Hearing Intact, Mucosa Moist & [place], Nares Patent, Normal Nasal Septum, Posterior Pharynx Clear, TMs Clear Neck: Supple, Trachea Midline Lungs: Clear to Auscultation, Normal Respiratory Effort Cardiovascular: Regular Rate, Regular Rhythm GI/Abdominal Exam: Normal Bowel Sounds, Soft, Non-Tender, No Organomegaly, No Distention, No Abnormal Bruit, No Mass, Pelvis Stable Rectal Exam: Normal Exam, Normal Rectal Tone Genitourinary: Normal external exam, Normal bimanual exam, Normal speculum exam Back Exam: Normal Inspection, Full Range of Motion Extremities: Normal Inspection, Normal Range of Motion, Non-Tender, No Pedal Edema, Normal Capillary Refill Skin: Warm, Dry, Intact Neurological: Cranial Nerves Intact, Reflexes Equal Bilateral Psychiatric: Alert, Normal Affect, Normal Mood - Patient Data Lab Results Last 24 hrs: Laboratory Results - last 24 hr 09/17/21 Range/Units 07:00 SARS-CoV-2 RNA (LOUISE) NEGATIVE (NEGATIVE) Problem List Initiated/Reviewed/Updated: Yes Orders Last 24hrs: Active Orders 24 hr Category Date Time Status Patient Status [ADT] Routine ADT 09/17/21 05:00 Active May Shower [RC] ASDIRECTED Care 09/17/21 09:02 Active Notify Provider [RC] PRN Care 09/17/21 09:02 Active Up ad [place] [RC] ASDIRECTED Care 09/17/21 09:02 Active Vaginal Exam [RC] PRN Care 09/17/21 09:02 Active Vital Signs [RC] PER UNIT ROUTINE Care 09/17/21 08:37 Active CBC W/O DIFF,HEMOGRAM [HEME] Routine Lab 09/17/21 08:36 Ordered RPR (SYPHILIS SERO) W/ RFLX [REF] Routine Lab 09/17/21 09:02 Ordered TYPE AND SCREEN [BBK] Routine Lab 09/17/21 07:22 Ordered Butorphanol [Stadol] Med 09/17/21 09:02 Active 1 mg IVPUSH Q1H PRN Carboprost Tromethamine [Hemabate DS] Med 09/17/21 09:02 Active 250 mcg IM ASDIRECTED PRN Lactated Ringers [Ringers, Lactated] 1,000 ml Med 09/17/21 09:15 Active IV ASDIRECTED Lidocaine 1% [Xylocaine 1%] Med 09/17/21 09:02 Active 50 ml INJECT ONETIME PRN Methylergonovine [Methergine] Med 09/17/21 09:02 Active 0.2 mg IM ASDIRECTED PRN Nalbuphine [Nubain] Med 09/17/21 09:02 Active 10 mg IVPUSH Q1H PRN Oxytocin/0.9 % Sodium Chloride [Oxytocin 30 Unit in NS Med 09/17/21 09:15 Active 0.9% 500 ML Premix] 30 unit in 500 ml IV TITRATE Sodium Chloride 0.9% [Saline Flush] Med 09/17/21 09:02 Active 10 ml FLUSH ASDIRECTED PRN Sodium Chloride 0.9% [Saline Flush] Med 09/17/21 09:02 Active 2.5 ml FLUSH ASDIRECTED PRN Tranexamic Acid [Cyklokapron] 1,000 mg Med 09/17/21 09:02 Active Sodium Chloride 0.9% [Normal Saline] 100 ml IV ONETIME miSOPROStoL [Cytotec] Med 09/17/21 09:02 Active 200 mcg PO ONETIME PRN Peripheral IV Insertion Adult [OM.PC] Routine Oth 09/17/21 09:02 Ordered Resuscitation Status Routine Resus Stat 09/17/21 09:02 Ordered Medication Orders Butorphanol Tartrate (Butorphanol 1 Mg/Ml Sdv) 1 mg IVPUSH Q1H PRN PRN Reason: Pain (severe 7-10) Carboprost Tromethamine (Carboprost Tromethamine 250 Mcg/1 Ml Amp) 250 mcg IM ASDIRECTED PRN PRN Reason: Post Hemorrhage Lactated Ringer's (Ringers, Lactated) 1,000 mls @ 150 mls/hr IV ASDIRECTED PABLO Oxytocin/Sodium Chloride (Oxytocin 30 Unit In Ns 0.9% 500 Ml Premix) 30 unit in 500 mls @ 500 mls/hr IV TITRATE PABLO Tranexamic Acid 1,000 mg/ (Sodium Chloride) 110 mls @ 660 mls/hr IV ONETIME PRN PRN Reason: Bleeding Lidocaine HCl (Lidocaine 1% 50 Ml Mdv) 50 ml INJECT ONETIME PRN PRN Reason: Laceration repair Methylergonovine Maleate (Methylergonovine 0.2 Mg/1 Ml Amp) 0.2 mg IM ASDIRECTED PRN PRN Reason: Post Hemorrhage Misoprostol (Misoprostol 200 Mcg Tab) 200 mcg PO ONETIME PRN PRN Reason: Post Hemorrhage Nalbuphine HCl (Nalbuphine 10 Mg/1 Ml Vial) 10 mg IVPUSH Q1H PRN PRN Reason: Pain (severe 7-10) Sodium Chloride (Sodium Chloride 0.9% 10 Ml Syringe) 10 ml FLUSH ASDIRECTED PRN PRN Reason: Keep Vein Open Sodium Chloride (Sodium Chloride 0.9% 2.5 Ml Syringe) 2.5 ml FLUSH ASDIRECTED PRN PRN Reason: Keep Vein Open Assessment/Plan Comment:: @0 week with demise admitted for induction.
[2021-09-17] MEDS ORDERED: Misoprostol 50 MCG (1/2 of 100 MCG) Tab PO PRN ×2 (15:30→19:30)
[2021-09-17] MEDS ORDERED: Acetaminophen 500 MG Tab PO PRN (17:00)
[2021-09-17] MEDS: Misoprostol 200 MCG Tab VAG PRN (23:09)
[2021-09-18] MEDS: Misoprostol 200 MCG Tab VAG PRN (03:27)
[2021-09-18] MEDS ORDERED: Ibuprofen 400 MG Tab PO PRN (07:12)
[2021-09-18] MEDS ORDERED: Lanolin 100% Cream 7 GM Tube TOP PRN (07:12)
[2021-09-18] MEDS ORDERED: Docusate Sodium 100 MG Cap PO PRN (07:12)
[2021-09-18] MEDS ORDERED: Ibuprofen 800 MG Tab PO PRN (07:12)
[2021-09-18] MEDS ORDERED: Bisacodyl 10 MG Supp RECTAL PRN (07:12)
[2021-09-18] MEDS ORDERED: Acetaminophen 500 MG Tab PO PRN ×2 (07:12)
[2021-09-18] MEDS ORDERED: Benzocaine/Menthol 20%-0.5% Spray 78 GM Cannister TOP PRN (07:12)
[2021-09-18] MEDS ORDERED: oxyCODONE 5 MG Tab PO PRN (07:12)
[2021-09-18] MEDS ORDERED: Witch Hazel Medicated Pads 40/Jar TOP PRN (07:12)
--- NOTE | 2021-09-18 07:18 | PCM.DCSUM1 ---
Discharge Summary - Hospital Course Diagnosis: Stroke: No - Discharge Data Discharge Date: 09/18/21 Discharge Disposition: Home, Self-Care 01 Condition: Good - Referral to Home Health Primary Care Physician: PCP None - Patient Instructions Diet: Usual Diet as Tolerated Activity: As Tolerated Driving: Do Not Drive Showering/Bathing: May Shower Notify Provider of: Fever, Increased Pain, Nausea and/or Vomiting - Discharge Plan Home Medications: Home Meds Vit No.130/Iron/Folic [ Vitamins] 1 tab PO DAILY 04/05/14 [History] Clindamycin HCl 300 mg PO Q6HR 10 Days #40 capsule 08/29/21 [Rx] Omeprazole 20 mg PO DAILY 08/29/21 [History] Ondansetron [Zofran ODT] 4 mg PO ASDIRECTED 08/29/21 [History] cephALEXin [Keflex] 500 mg PO QID #30 cap 08/29/21 [Rx] - Discharge Summary/Plan Comment DC Time >30 min.: Yes Total # of Minutes for Discharge Time: 30 - General Info Date of Service: 09/18/21 Functional Status: Reports: Pain Controlled - Review of Systems General: Reports: No Symptoms HEENT: Reports: No Symptoms Pulmonary: Reports: No Symptoms Cardiovascular: Reports: No Symptoms Gastrointestinal: Reports: No Symptoms Genitourinary: Reports: No Symptoms Musculoskeletal: Reports: No Symptoms Skin: Reports: No Symptoms Neurological: Reports: No Symptoms Psychiatric: Reports: No Symptoms - Patient Data Vitals - Most Recent: Last Vital Signs Temp 36.5 C 09/17/21 20:16 Pulse 82 09/17/21 20:16 Resp 18 09/17/21 20:16 BP 130/76 09/17/21 20:16 Pulse Ox 97 09/17/21 20:16 Weight - Most Recent: 117.934 kg Lab Results - Last 24 hrs: Laboratory Results - last 24 hr 09/17/21 09/17/21 09/17/21 Range/Units 07:00 12:48 12:48 WBC 8.42 (4.0-11.0) K/uL RBC 4.61 (4.30-5.90) M/uL Hgb 12.4 (12.0-16.0) g/dL Hct 36.8 (36.0-46.0) % MCV 79.8 L (80.0-98.0) fL MCH 26.9 L (27.0-32.0) pg MCHC 33.7 (31.0-37.0) g/dL RDW Std Deviation 40.2 (28.0-62.0) fl RDW Coeff of Liz 14 (11.0-15.0) % Plt Count 270 (150-400) K/uL MPV 10.00 (7.40-12.00) fL Nucleated RBC % 0.0 /100WBC Nucleated RBCs # 0 K/uL SARS-CoV-2 RNA (LOUISE) NEGATIVE (NEGATIVE) Blood Type A NEGATIVE Antibody Screen NEGATIVE Med Orders - Current: Current Medications Acetaminophen (Acetaminophen 500 Mg Tab) 1,000 mg PO Q4H PRN PRN Reason: Headache/Pain Last Admin: 09/17/21 17:16 Dose: 1,000 mg Documented by: Acetaminophen (Acetaminophen 500 Mg Tab) 500 mg PO Q4H PRN PRN Reason: Pain (mild 1-3) Acetaminophen (Acetaminophen 500 Mg Tab) 1,000 mg PO Q4H PRN PRN Reason: Pain (mild 1-3) Benzocaine/Menthol (Benzocaine/Menthol 20%-0.5% [place] 78 Gm Cannister) 78 gm TOP ASDIRECTED PRN PRN Reason: Perineal Comfort Measure Bisacodyl (Bisacodyl 10 Mg Supp) 10 mg RECTAL ONETIME PRN PRN Reason: Constipation Butorphanol Tartrate (Butorphanol 1 Mg/Ml Sdv) 1 mg IVPUSH Q1H PRN PRN Reason: Pain (severe 7-10) Carboprost Tromethamine (Carboprost Tromethamine 250 Mcg/1 Ml Amp) 250 mcg IM ASDIRECTED PRN PRN Reason: Post Hemorrhage Docusate Sodium (Docusate Sodium 100 Mg Cap) 100 mg PO Q12H PRN PRN Reason: Constipation Emollient Ointment (Lanolin 100% Cream 7 Gm Tube) 0 gm TOP ASDIRECTED PRN PRN Reason: Sore Nipples Lactated Ringer's (Ringers, Lactated) 1,000 mls @ 150 mls/hr IV ASDIRECTED PABLO Oxytocin/Sodium Chloride (Oxytocin 30 Unit In Ns 0.9% 500 Ml Premix) 30 unit in 500 mls @ 500 mls/hr IV TITRATE PABLO Tranexamic Acid 1,000 mg/ (Sodium Chloride) 110 mls @ 660 mls/hr IV ONETIME PRN PRN Reason: Bleeding Ibuprofen (Ibuprofen 400 Mg Tab) 400 mg PO Q4H PRN PRN Reason: Pain (mild 1-3) Ibuprofen (Ibuprofen 800 Mg Tab) 800 mg PO Q6H PRN PRN Reason: Cramping Lidocaine HCl (Lidocaine 1% 50 Ml Mdv) 50 ml INJECT ONETIME PRN PRN Reason: Laceration repair Methylergonovine Maleate (Methylergonovine 0.2 Mg/1 Ml Amp) 0.2 mg IM ASDIRECTED PRN PRN Reason: Post Hemorrhage Misoprostol (Misoprostol 200 Mcg Tab) 200 mcg PO ONETIME PRN PRN Reason: Post Hemorrhage Misoprostol (Misoprostol 50 Mcg (1/2 Of 100 Mcg) Tab) 50 mcg PO ONETIME PRN PRN Reason: Cervical Ripening Last Admin: 09/17/21 15:43 Dose: 50 mcg Documented by: Misoprostol (Misoprostol 50 Mcg (1/2 Of 100 Mcg) Tab) 50 mcg PO Q4H PRN PRN Reason: Cervical Ripening Misoprostol (Misoprostol 200 Mcg Tab) 200 mcg VAG Q4H PRN PRN Reason: Other Last Admin: 09/18/21 03:27 Dose: 200 mcg Documented by: Nalbuphine HCl (Nalbuphine 10 Mg/1 Ml Vial) 10 mg IVPUSH Q1H PRN PRN Reason: Pain (severe 7-10) Oxycodone HCl (Oxycodone 5 Mg Tab) 5 mg PO Q2H PRN PRN Reason: Pain (severe 7-10) Sodium Chloride (Sodium Chloride 0.9% 10 Ml Syringe) 10 ml FLUSH ASDIRECTED PRN PRN Reason: Keep Vein Open Sodium Chloride (Sodium Chloride 0.9% 2.5 Ml Syringe) 2.5 ml FLUSH ASDIRECTED PRN PRN Reason: Keep Vein Open Witch Princess (Witch Princess Medicated Pads 40/Jar) 1 pad TOP ASDIRECTED PRN PRN Reason: comfort care - Exam General: Reports: Alert, Oriented HEENT: Reports: Pupils Equal, Pupils Reactive, EOMI, Mucous Membr. Moist/[place] Neck: Reports: Supple Lungs: Reports: Clear to Auscultation, Normal Respiratory Effort Cardiovascular: Reports: Regular Rate, Regular Rhythm GI/Abdominal Exam: Normal Bowel Sounds, Soft, Non-Tender, No Organomegaly, No Distention, No Abnormal Bruit, No Mass, Pelvis Stable (Female) Exam: Normal External Exam, Normal Speculum Exam, Normal Bimanual Exam Rectal (Female) Exam: Normal Exam, Normal Rectal Tone Back Exam: Reports: Normal Inspection, Full Range of Motion Extremities: Normal Inspection, Normal Range of Motion, Non-Tender, No Pedal Edema, Normal Capillary Refill Skin: Reports: Warm, Dry, Intact Wound/Incisions: Reports: Healing Well Neurological: Reports: No New Focal Deficit Psy/Mental Status: Reports: Alert, Normal Affect, Normal Mood
--- NOTE | 2021-09-18 08:14 | OR ---
SURGEON: Saul Fallon MD DATE OF PROCEDURE: 09/17/2021 Ms. Winchester is 36-year-old. She is para 6-0-0-6. She is 20 weeks' . She came for her anatomy ultrasound two days ago, and she had a confirmed IUFD that was confirmed by me later on in the clinic, and then after discussing the situation with the parent, she is admitted for induction of labor. We use Cytotec for induction. The patient tolerated it very well, and after 12 hours of using Cytotec, she expelled the fetus, and then I delivered the placenta, which was in the in the vagina at that time. Once the placenta was delivered, the bleeding stopped. The estimated blood loss is 350 to 400 mL. The patient tolerated the procedure well, and she would be discharged home later on during the day after making sure that she is not actively bleeding. To be followed in the office in two weeks. RAND / NORAH /[id number]
[2021-09-18 13:32] VITALS: BP 133/68; PULSE 81
== END 2021-09-18 15:50 | disposition home or self-care (01) ==
LOC: MW.OB 05:05
PROVIDERS: ADMIT Obstetrics & Gynecology; ATTEND Obstetrics & Gynecology
DX: O02.1 Missed abortion (principal); Z88.0 Allergy status to penicillin; Z79.899 Other long term (current) drug therapy; Z01.812 Encounter for preprocedural laboratory examination; Z20.822 Contact with and (suspected) exposure to COVID-19
CPT/HCPCS: 36415; 59855; 85014; 85018; 85027; 85460; 86592; 86850; 86900; 86901; 87635; 90384; A9270; J0595; J2790; U0002